=== PATIENT | female | born 1980 | race Caucasian/White ===

== ENCOUNTER 2019-06-07 16:05 | Emergency (ER) | payer MEDICAID, SELFPAY ==
[2019-06-07 16:17] VITALS: BP 145/90; PULSE 80; RESP 18; TEMP 36.8; O2SAT 97
--- NOTE | 2019-06-07 16:19 | ED.GENADUL_ITS ---
Discharge Plan Disposition Patient Disposition: HOME Condition: Improving Discharge Details Chief Complaint: Fever Clinical Impression: Nausea & vomiting, Abdominal pain Primary Care Provider: None,None ED Provider: Brooke Amezquita Home Meds and New Rx's Prescriptions: New ondansetron 4 mg tablet,disintegrating 4 mg PO Q6H PRN (Reason: nausea and vomiting) Qty: 14 RF: 0 Discharge Instructions Instructions: Acute Nausea and Vomiting (ED), Abdominal Pain (ED) Additional Instructions: Continue to encourage hydration. Please use the Zofran as prescribed to help with any recurrence of your nausea vomiting. I have asked her care according to help facilitate follow-up with primary care next week for reevaluation. Develop fever/chills, inability to stay hydrated, increased pain or other new/worsening symptoms please seek care urgently once again. On your CAT scan, you were noted to have a large right ovarian cyst, you will also need follow-up with [facility], please call the office tomorrow to schedule appointment, number listed below. Referrals: Roxi Barcenas MD [ [facility] STAFF PHYSICIAN] - Discharge Data Discharge Date/Time-TO BE ENTERED AT DEPARTURE: 06/07/19 19:35 Medical Decision Making Patient is a 39-year-old female presents today with chief complaint of fever and nausea x3 days. She has also began noting some left upper quadrant pain that began today. States the pain in the left upper quadrant can radiate around to the back. Denies any vomiting but has continuously been nauseated. Son is here with similar complaints. Denies any recent travel. No recent antibiotics. Denies any recent sexual activity. She denies any sore throat, cough, chest pain. No previous medical history. Denies any burning or discomfort with urination. Denies any increased frequency urgency. Denies any change in bowel habits. On exam, patient appears On exam, patient appears quite uncomfortable. She is holding her left side. She does have left-sided CVA tenderness as well as left upper quadrant pain with palpation. No peritoneal findings, no guarding. She is currently afebrile, nontoxic-appearing. Appears well-hydrated. Plan for labs and CT. Patient is status post cholecystectomy and appendectomy. UPT negative. Labs reviewed. His white count slightly low at 3.44, she is not anemic. Potassium slightly low 3.4, will replenish this orally. Urine does not indicate any infection. Patient going out for CT. Of note, I had ordered to hydrate the patient intravenously as she was reporting this consistent nausea and diminished appetite. However, she did not like the feel of the IV and declined any further medications or fluids through the IV. FINDINGS: Mediastinum: Small hiatal hernia. Liver: Normal. No mass. Gallbladder and bile ducts: Cholecystectomy. Pancreas: Normal. No ductal dilation. Spleen: Splenule. Adrenals: Normal. No mass. Kidneys and ureters: Normal. No hydronephrosis. Stomach and bowel: Unremarkable. No obstruction. No mucosal thickening. Appendix: Appendectomy. Vasculature: Mild atherosclerosis. Lymph nodes: Unremarkable. No enlarged lymph nodes. Bladder: Unremarkable as visualized. Reproductive: 5 cm right ovarian cyst. Bones/joints: Unremarkable. No acute fracture. Soft tissues: Unremarkable. IMPRESSION: Small hiatal hernia. Cholecystectomy. Mild atherosclerosis. 5 cm right ovarian cyst. Six-week followup is recommended. Appendectomy. Splenule. Discussed these findings with the patient. She does not routinely seen [facility], she will call tomorrow for follow-up of the ovarian cyst. There is no evidence of acute surgical pathology in the left upper quadrant and the patient is having discomfort. The area of the cyst is far from where she is having discomfort, no pain is elicited on palpation over the right lower quadrant. In regard to hiatal hernia, patient is not having any midline tenderness, no epigastric pain. Agai n, patient appears nontoxic. I clarified the patient's history of nausea and vomiting further, she is now reporting that she vomited multiple times over the past few days but none today. This is likely was driving her discomfort, this is likely musculoskeletal pain. Discussed this concern with the patient. Encourage hydration. She did do well with Toradol and Zofran. Zofran completely alleviated her nausea. Advise close follow-up with primary care, as the patient does not have one I have asked her residential care facility manager to help establish care for reevaluation next week. She was given strict return precautions. All of her questions and concerns were addressed and she is in agreement this plan. HPI General Mode of arrival: ambulatory . Date/Time Provider Initiated Documentation: 06/07/19 16:19 . Limitations to Documentation: no limitations . Information obtained by: patient, family (3 children, one of whom has the same sxs) and RN notes reviewed . History of Present Illness 39 year old F presents to the emergency department with the chief complaint of N/V, LUQ pain, described as moderate, with intensity rated at 8. Quality is described as aching, and is localized to the abdomen. Patient reports no radiation. Patient started experiencing this day(s) and it has been constant. No relieving factors improve symptom(s), No exacerbating factors reported . Patient notes fever/chills, loss of appetite and nausea/vomiting; denies chest pain, cough, diaphoresis, headaches, malaise, rash, shortness of breath and weakness. Patient did receive the following treatments prior to arrival, none Related Data Home Medications Medication Instructions Recorded Confirmed ondansetron 4 mg PO Q6H PRN #14 tab 06/07/19 Previous Rx's Medication Instructions Recorded ondansetron 4 mg PO Q6H PRN #14 tab 06/07/19 Allergies Allergy/AdvReac Type Severity Reaction Status Date / Time No Known Allergies Allergy Unverified 06/07/19 17:48 Review of Systems Constitutional Constitutional: Reports as per HPI, Denies chills, Denies fatigue, Denies fever(s) and Denies headache(s) ENT Ears, Nose, Mouth, and Throat: Denies headache(s) Cardiovascular Cardiovascular: Reports as per HPI, Denies chest pain and Denies dyspnea Respiratory Respiratory: Reports as per HPI, Denies cough and Denies dyspnea Gastrointestinal Gastrointestinal: Reports as per HPI, Reports abdominal pain, Denies melena, Denies bloating, Denies change in bowel habits, Denies constipation, Denies diarrhea, Reports nausea and Reports vomiting Musculoskeletal Musculoskeletal: Reports as per HPI and Denies back pain Integumentary/Breasts Skin/Breast: Reports as per HPI and Denies rash Neurologic Neurologic: Reports as per HPI and Denies headache(s) Endocrine Endocrine: Denies fatigue [facility] Social History Smoking/Tobacco Use Status: Never Alcohol Intake: never Substance use type: does not use Do you feel safe at home: Yes Do you feel safe in your relationship?: Yes Exam Const General: cooperative, healthy appearing, comfortable, no acute distress and well developed Nutritional Appearance: well nourished and overweight Orientation: alert and awake HENMT Head: normal to inspection Mouth: moist mucous membranes Resp Effort & Inspection: normal respiratory effort, able to speak in complete sentences and no respiratory distress Auscultation: clear to auscultation bilaterally, no rales, no rhonchi and no wheezes Cardio Rate: regular rate Rhythm: regular rhythm Heart Sounds: S1 normal and S2 normal GI Inspection: normal to inspection, non-distended, no incisions and obesity Palpation: soft, no hepatosplenomegaly, not firm, no guarding, not rigid and tender in the LUQ; with no rebound tenderness Percussion: normal to percussion Auscultation: normal bowel sounds Back/Spine/Pelvis Back: CVA tenderness (left) Skin General skin exam: no rashes or lesions noted Trauma: no lacerations or abrasions Neuro General: alert and awake Cognition: normal cognition Speech: speech normal Gait: normal gait Extrem General: normal to inspection, no pedal edema, no calf tenderness and normal gait Psych Appearance: grossly normal and well kempt Mental Status: mental status grossly normal Speech and Movement: speech and movement normal
--- NOTE | 2019-06-07 16:34 | DI.CT_ITS ---
SYMPTOM/DIAGNOSIS: LUQ PAIN CT ABDOMEN AND PELVIS: There are no prior comparison exams. The lung bases are clear. The liver shows slight fatty infiltration. The patient is status post cholecystectomy. There is no biliary dilatation. The spleen, pancreas, kidneys, adrenals and urinary bladder are unremarkable. The uterus is retroverted. There is a cyst on the right ovary measuring up to 5 cm. There are no suspicious features. The left ovary is unremarkable. There is a trace, physiologic amount of fluid in the cul de sac. Suture material is seen at the base of the cecum. There is no bowel dilatation or wall thickening. There is a moderate increased quantity of stool seen throughout the colon. There is a small fatty containing hernia to the right of the umbilicus. There is a small hiatal hernia. No bony abnormalities are seen. IMPRESSION: Right ovarian cyst. A follow up pelvic ultrasound could be performed.
[2019-06-07] MEDS: Normal Saline 1,000 ML 1000 ML IV (17:04)
[2019-06-07 17:09] LABS: Abs Immature Grans 0.01 k/cumm (0.0-0.09); HCT 41.7 % (36.0-46.0); HGB 13.7 g/dL (12.0-15.5); Mean Corp. HGB Concentration 32.9 g/dL (32.0-36.0); Mean Corpuscular Hemoglobin 28.4 pg (27.0-33.0); Mean Corpuscular Volume 86.3 fL (80-95); Mean Platelet Volume 11.3 fL (8.0-11.0); Platelet Count 267 x1000/uL (130-400); RBC 4.83 m/cumm (4.00-5.20); RBC Distribution Width 14.8 % (11.7-14.6); White Blood Cell Count 3.44 k/cumm (4.4-10.8)
[2019-06-07 17:28] LABS: Absolute Eosinophil Count 0.07 k/cumm (0.0-0.7); Absolute Lymphocyte Count 1.93 k/cumm (1.2-3.4); Absolute Monocyte Count 0.28 k/cumm (0.11-0.7); Absolute Neutrophil Count 1.17 k/cumm (1.2-6.7); Atypical Lymphocytes % 6; Diff Comment Manual Differential; RBC Morphology Normal
[2019-06-07 17:40] LABS: Lipase 90 U/L (73-393)
[2019-06-07 17:43] LABS: ALT 24 U/L (14-59); AST 24 U/L (15-37); Albumin 3.5 g/dL (3.4-5.0); Alkaline Phosphatase 91 U/L (46-116); Anion Gap 10.5 mmol/L (3-11); BUN 7 mg/dL (7-18); Bilirubin, Total 0.5 mg/dL (0.2-1.0); CO2 25.5 mmol/L (21.0-32.0); CREATININE 0.69 mg/dL (0.55-1.02); Calcium 8.4 mg/dL (8.5-10.1); Chloride 104 mmol/L (98-107); Glucose 103 mg/dL (70-100); Potassium 3.4 mmol/L (3.5-5.1); Sodium 140 mmol/L (136-145); Total Protein 7.4 g/dL (6.4-8.2)
[2019-06-07 17:52] LABS: Bilirubin Negative (Negative); Blood Negative (Negative); Clarity Clear (Clear); Glucose Negative (Negative); Ketones Negative (Negative); Leukocyte Esterase Negative (Negative); Nitrite Negative (Negative); Urobilinogen 0.2 EU/dL (Up TO 0.2)
[2019-06-07] MEDS: Normal Saline Flush 10 ML SYR IVP (18:20)
[2019-06-07] MEDS: Omnipaque 350 MG/ML 100 ML BTL IJ (18:20)
--- NOTE | 2019-06-07 18:37 | DI.VRAD_ITS ---
EXAM: CT Abdomen and Pelvis With Contrast EXAM DATE/TIME: 06/07/2019 4:36 PM CLINICAL HISTORY: 39 years old, female; Pain; Other: Luq TECHNIQUE: Imaging protocol: Computed tomography of the abdomen and pelvis with intravenous contrast. Radiation optimization: All CT scans at this facility use at least one of these dose optimization techniques: automated exposure control; mA and/or kV adjustment per patient size (includes targeted exams where dose is matched to clinical indication); or iterative reconstruction. Contrast material: OMNIPAQUE; Contrast volume: 100 ml; Contrast route: RT AC; COMPARISON: No relevant prior studies available. FINDINGS: Mediastinum: Small hiatal hernia. Liver: Normal. No mass. Gallbladder and bile ducts: Cholecystectomy. Pancreas: Normal. No ductal dilation. Spleen: Splenule. Adrenals: Normal. No mass. Kidneys and ureters: Normal. No hydronephrosis. Stomach and bowel: Unremarkable. No obstruction. No mucosal thickening. Appendix: Appendectomy. Vasculature: Mild atherosclerosis. Lymph nodes: Unremarkable. No enlarged lymph nodes. Bladder: Unremarkable as visualized. Reproductive: 5 cm right ovarian cyst. Bones/joints: Unremarkable. No acute fracture. Soft tissues: Unremarkable. IMPRESSION: Small hiatal hernia. Cholecystectomy. Mild atherosclerosis. 5 cm right ovarian cyst. Six-week followup is recommended. Appendectomy. Splenule. Dictated and Authenticated by: Naida Duong MD. Ordering:HERIBERTO Cox MD
[2019-06-07] MEDS: Ondansetron O.D.T. 4 MG TABEF PO (18:42)
[2019-06-07 19:21] VITALS: BP 145/90; PULSE 80; RESP 18; TEMP 36.8; O2SAT 97
== END 2019-06-07 19:35 | disposition home or self-care (01) ==
PROVIDERS: Emergency Provider Physician Assistant
DX: R11.2 Nausea with vomiting, unspecified (principal); R10.12 Left upper quadrant pain
CPT/HCPCS: 36415; 80053; 81025; 83690; 99285; 74177; 81003; 85025; 99284; J3490

== ENCOUNTER 2019-06-14 19:43 | Emergency (ER) | payer MEDICAID, SELFPAY ==
[2019-06-14 19:46] VITALS: BP 129/89; PULSE 124; RESP 18; TEMP 36.8; O2SAT 97
--- NOTE | 2019-06-14 19:58 | ED.GENADUL_ITS ---
Discharge Plan Disposition Patient Disposition: HOME Condition: Good Discharge Details Chief Complaint: Abd Prob Clinical Impression: Upper abdominal pain Primary Care Provider: None,None ED Provider: Mohan Thapas and New Rx's Prescriptions: New sucralfate 1 gram tablet 1 gm PO QACHS Qty: 90 RF: 0 pantoprazole 40 mg tablet,delayed release (DR/EC) 40 mg PO DAILY Qty: 30 RF: 0 metoclopramide HCl 10 mg tablet 10 mg PO QAC Qty: 30 RF: 0 Discharge Instructions Instructions: Abdominal Pain (ED) Additional Instructions: Bunch diet for now. Will start medications for possible acid related disease. We will have care management help get primary care referral. Should be seen in 1 to 2 weeks for reevaluation. Return to ED for high fever, persistent vomiting, new or worsening pain. Referrals: Care Management [Provider Group] Medical Decision Making Patient here with upper abdominal pain radiating to left back. Nausea with one episode of vomiting. Denies chest pain or shortness of breath. Noticed some blood in her urine. Has no urinary symptoms. Has had previous cholecystectomy and appendectomy. Her exam reveals a soft nontender abdomen. Some mild left CVAT. We will start IV and give fluids. Will give Zofran and Toradol. Urinalysis laboratory studies obtained. CT scan of the abdomen pelvis ordered. Will get EKG though I doubt this is cardiac; she is complaining of upper abdominal pain but has a benign abdomen. Urine test is negative. Urinalysis does reveal blood but is also contaminated with epithelial cells. Laboratory studies show normal white count. Normal kidney function. Normal lipase. Normal LFTs. Normal troponin. EKG is normal. Pain was better with Toradol but is coming back. She, however, has no ride home so we will avoid narcotics. We will try IV Tylenol. CT is still pending. Patient CT scan has come back essentially normal. Some questionable subtle peripancreatic stranding but her lipase is normal. Right adnexal cyst is smaller. I had not realized patient was here last week for same complaint. She had not mentioned it. I finally reviewed that chart. She had essentially the same presentation. On questioning she states it never got better and felt worse so she came back. She has not followed up with anyone. At this point given the epigastric/upper abdominal/left-sided pain will treat as possible acid related disease/ulcer. We will start her on Carafate, PPI, Reglan. Will refer to care management for primary care referral as she states she does not have primary care physician. Return to ED for high fever, new worsening pain, persistent vomiting, bloody emesis. Medical Records Medical records reviewed: Yes I reviewed the patient's medical records. Lab Data Lab results reviewed: Yes I reviewed the patient's lab results. ECG Data Attestation: I personally reviewed and interpreted this ECG (s) as follows: Prior ECG tracings: not available for review Interpretation: Sinus rhythm at 83. Normal axis and intervals. Normal ST segments. HPI General Mode of arrival: ambulatory . Date/Time Provider Initiated Documentation: 06/14/19 19:57 . Limitations to Documentation: no limitations . Information obtained by: patient, RN notes reviewed and old records reviewed . HPI Narrative: Patient presents to ED with upper abdominal pain that radiates to the left back. She has had it intermittently for a little bit but not severe and not prolonged. She has developed discomfort this morning and it has got progressively worse throughout the day. She has had nausea. She had one episode of emesis. She had a small amount of diarrhea. She has subjectively felt like she has had a fever but has not taken her temperature. She denies ba[address] st pain, cough, shortness of breath. She noticed some blood in her urine when she was wiping. She does not have dysuria, frequency, urgency. She has no lower abdomen or pelvic pain. She is no longer able to tolerate the pain and came in for evaluation. Related Data Home Medications Medication Instructions Recorded Confirmed metoclopramide HCl 10 mg PO QAC #30 tab 06/14/19 pantoprazole 40 mg PO DAILY #30 tab 06/14/19 sucralfate 1 gm PO QACHS #90 tab 06/14/19 Previous Rx's Medication Instructions Recorded metoclopramide HCl 10 mg PO QAC #30 tab 06/14/19 pantoprazole 40 mg PO DAILY #30 tab 06/14/19 sucralfate 1 gm PO QACHS #90 tab 06/14/19 Allergies Allergy/AdvReac Type Severity Reaction Status Date / Time No Known Allergies Allergy Unverified 06/14/19 19:49 General Stated Complaint: Abd Prob MOE: 3 Review of Systems Review of Systems Narrative: 07/09 Review of Systems completed and is negative except as stated above in HPI (Systems reviewed: Const, Eyes, ENT, Resp, CV, GI, , MSK, Skin, Neuro) [facility] Medical History No active medical problems (Acute) Surgical History (Updated 06/14/19 @ 21:59 by Mohan Thapa MD) History of appendectomy (Chronic) History of section (Chronic) History of cholecystectomy (Chronic) Social History Smoking/Tobacco Use Status: Never Alcohol Intake: never Substance use type: does not use Do you feel safe at home: Yes Do you feel safe in your relationship?: Yes Exam Narrative Exam Narrative: Vitals: Low grade temp here. Tachycardic but otherwise normal vitals and saturations. Const: Obese female who appears uncomfortable but not in distress. HEENT: NC/AT. Normal facial exam. Eyes: Normal conjunctiva and sclera. Neck: Supple. Trachea midline. Lungs: Normal respiratory effort. Lungs are clear. Cor: RRR without murmur/gallop. Good radial pulses. GI: Soft. NT/ND. No guarding or rebound. Back: Mild left CVAT. Neuro: A+O x 3. CN grossly in tact. Good strength and no focal deficit. Ext: No C/C/E. No deformity or tenderness. Skin: Warm and dry without rash. Course Vital Signs Vital signs: Vital Signs Temperature 98.2 F 06/14/19 19:46 Pulse 124 H 06/14/19 19:46 Respiratory Rate 18 06/14/19 19:46 Blood Pressure 129/89 06/14/19 19:46 Pulse Oximetry 97 06/14/19 19:46 Temperature 98.2 F 06/14/19 19:46 Temperature Source Skin 06/14/19 19:46 Pulse 124 H 06/14/19 19:46 Respiratory Rate 18 06/14/19 19:46 Respiratory Effort Non-Labored 06/14/19 19:49 Blood Pressure 129/89 06/14/19 19:46 Pulse Oximetry 97 06/14/19 19:46 Pain Level 10 06/14/19 19:46
[2019-06-14 20:10] LABS: Bilirubin Small (Negative); Blood Large (Negative); Clarity Sl Cloudy (Clear); Glucose Negative (Negative); Ketones Negative (Negative); Leukocyte Esterase Trace (Negative); Nitrite Negative (Negative); Specific Gravity 1.025 (1.005-1.025); Urobilinogen 0.2 EU/dL (Up TO 0.2); pH 5.5 (5-8)
[2019-06-14 20:13] VITALS: TEMP 37.8
[2019-06-14 20:23] LABS: Abs Immature Grans 0.01 k/cumm (0.0-0.09); Absolute Basophil Count 0.01 k/cumm (0.0-0.2); Absolute Eosinophil Count 0.07 k/cumm (0.0-0.7); Absolute Lymphocyte Count 1.18 k/cumm (1.2-3.4); Absolute Monocyte Count 0.29 k/cumm (0.11-0.7); Absolute Neutrophil Count 3.27 k/cumm (1.2-6.7); Basophils % 0.2; Eosinophils % 1.4; HCT 42.1 % (36.0-46.0); Immature Grans % 0.2; Lymphocytes % 24.4; Mean Corp. HGB Concentration 33.3 g/dL (32.0-36.0); Mean Corpuscular Hemoglobin 28.3 pg (27.0-33.0); Mean Corpuscular Volume 85.2 fL (80-95); Mean Platelet Volume 10.9 fL (8.0-11.0); Neutrophils % 67.8; Platelet Count 305 x1000/uL (130-400); RBC 4.94 m/cumm (4.00-5.20); RBC Distribution Width 14.7 % (11.7-14.6); White Blood Cell Count 4.83 k/cumm (4.4-10.8)
[2019-06-14 20:24] LABS: Epithelial Cells Many HPF (Negative); RBC 20-50 (0-2)
[2019-06-14 20:25] LABS: Bacteria Moderate HPF (Negative); C & S Indicated? No/Sq. Contamination; Casts Negative LPF (Negative); Crystals Negative HPF (Negative); Mucus Trace (Negative); Other Cells Rare Renal (Negative)
[2019-06-14] MEDS: Lactated Ringers 1,000 ML 1000 ML IV (20:32)
[2019-06-14] MEDS: Ondansetron 4 MG/2 ML VIAL IVP (20:33)
[2019-06-14 20:35] LABS: ALT 17 U/L (14-59); AST 13 U/L (15-37); Albumin 3.5 g/dL (3.4-5.0); Alkaline Phosphatase 96 U/L (46-116); Anion Gap 11.3 mmol/L (3-11); BUN 7 mg/dL (7-18); CO2 24.7 mmol/L (21.0-32.0); CREATININE 0.65 mg/dL (0.55-1.02); Calcium 7.9 mg/dL (8.5-10.1); Chloride 104 mmol/L (98-107); Glucose 114 mg/dL (70-100); Lipase 81 U/L (73-393); Magnesium 1.8 mg/dL (1.8-2.4); Potassium 3.4 mmol/L (3.5-5.1); Sodium 140 mmol/L (136-145); Total Protein 7.5 g/dL (6.4-8.2); Troponin I < 0.05 ng/mL (0.00-0.06)
[2019-06-14] MEDS: Ketorolac 30 MG/ML VIAL IVP (20:35)
[2019-06-14] MEDS: ACETAMINOPHEN 1,000 MG/100 ML BTL 400 MG IVPB (22:00)
[2019-06-14] MEDS: Omnipaque 350 MG/ML 100 ML BTL IJ (22:36)
--- NOTE | 2019-06-14 22:45 | DI.CT_ITS ---
EXAM: CT ABDOMEN PELVIS W CLINICAL HISTORY: upper abdominal pain; vomiting. TECHNIQUE: The study was carried out according to the usual protocol with an intravenous injection o f 100 cc of Omnipaque 350. COMPARISON: CT ABDOMEN PELVIS W from 06/07/2019 FINDINGS: Diminished density is noted in an enlarged liver, findings consistent with fatty infiltration. Patie nt is status post cholecystectomy. There is no evidence of dilatation. The pancreas appears intact. Spleen is normal. Note is made of a stable 6 mm density lesion involving the right adrenal gland whi ch would be consistent with a small myelolipoma. The adrenal glands are otherwise unremarkable. Kid neys are intact with no evidence of hydronephrosis. There is no evidence of bowel obstruction or muco connie thickening. Patient is status post appendectomy. There is no evidence of free air or free fluid in the intraperitoneal space. Atherosclerotic changes are noted involving the aorta and there is no evidence of an aneurysm. There is no evidence of lymphadenopathy. The bladder is intact. There has been a decrease in size in a known right adnexal cyst,now measuring 3.8 cm, previously measuring up t o 4.7 cm. The reproductive organs appear otherwise unremarkable. No acute bony abnormality is seen. T here is a small fat containing paraumbilical hernia. No acute bony abnormality is seen. IMPRESSION: No acute abnormality is noted in the abdomen or pelvis. There is a decrease in the size of a right a dnexal cyst.
[2019-06-14 22:48] VITALS: BP 113/71; PULSE 84; RESP 18; O2SAT 96
--- NOTE | 2019-06-14 23:30 | DI.VRAD_ITS ---
PROCEDURE INFORMATION: Exam: CT Abdomen and Pelvis With Contrast Exam date and time: 06/14/2019 10:42 PM Clinical history: 39 years old, female; Localized; Patient HX: Upper abdominal pain, vomiting TECHNIQUE: Imaging protocol: Computed tomography of the abdomen and pelvis with intravenous contrast. Radiation optimization: All CT scans at this facility use at least one of these dose optimization techniques: automated exposure control; mA and/or kV adjustment per patient size (includes targeted exams where dose is matched to clinical indication); or iterative reconstruction. Contrast material: OMNIPAQUE 350; Contrast volume: 100 ml; Contrast route: IV; COMPARISON: CT ABDOMEN PELVIS W 06/07/2019 6:14 PM FINDINGS: Mediastinum: A small hiatal hernia is present. Liver: There is marked enlargement of the liver. There is a diffuse decrease in hepatic parenchymal density, consistent with fatty infiltration. Gallbladder and bile ducts: Patient status post cholecystectomy. No biliary ductal dilation. Pancreas: Questionable very subtle peripancreatic stranding at the level of the pancreatic head and proximal pancreatic body. Spleen: Normal. No splenomegaly. Small splenule again appreciated. Adrenals: Stable 6 mm fat density lesion in the right adrenal gland on image 224 series 5 is compatible with a small myelolipoma, benign. Adrenal glands are otherwise unremarkable. Kidneys and ureters: Normal. No hydronephrosis. Stomach and bowel: Unremarkable. No obstruction. No mucosal thickening. Appendix: There has been an appendectomy. Intraperitoneal space: Unremarkable. No free air. No significant fluid collection. Vasculature: The vasculature demonstrates diffuse mild atherosclerotic calcification. Lymph nodes: Unremarkable. No enlarged lymph nodes. Bladder: Unremarkable as visualized. Reproductive: Decrease in size in known right adnexal cystic lesion, now measuring 3.8 cm (previously up to 4.7 cm when measured in similar fashion). Reproductive organs appear otherwise unremarkable. Bones/joints: No acute abnormality or aggressive osseous lesion. Soft tissues: Small fat containing paraumbilical hernia is appreciated. IMPRESSION: 1. Questionable very mild acute pancreatitis. Correlation with lipase levels is recommended. Otherwise, no other acute abdominopelvic pathology is appreciated. 2. Decrease in size in known right adnexal cystic lesion. 3. Other incidental findings as above. Dictated and Authenticated by: Jose Beatty MD. Ordering:SOBEIDA Preston MD
[2019-06-14] MEDS: Metoclopramide 10 MG TAB PO (23:59)
[2019-06-14] MEDS: Sucralfate 1 GM TAB PO (23:59)
[2019-06-15] MEDS: Pantoprazole 40 MG TABCR PO
[2019-06-15 00:05] VITALS: BP 124/78; PULSE 78; RESP 18; TEMP 37.1; O2SAT 98
== END 2019-06-15 00:15 | disposition home or self-care (01) ==
PROVIDERS: Emergency Provider Emergency Medicine
DX: R10.10 Upper abdominal pain, unspecified (principal); R11.2 Nausea with vomiting, unspecified
CPT/HCPCS: 36415; 80053; 81025; 83690; 93005; 96361; 96365; 96375; 99285; 74177; 81003; 81015; 83735; 84484; 85025; 93010; 99284; J0131; J1885; J2405; J3490